=== PATIENT | female | born 1985 | race Caucasian/White ===

== ENCOUNTER 2017-04-12 23:14 | Emergency (ER) | payer BC, MEDICAID, OTHER ==
[~2017-04-12] VITALS: Ht 154.9 cm; Wt 48.0 kg
[~2017-04-12 23:14] MED LIST: IRON325T2 PO; PERC5TAB12 PO; PREN0.01 PO; PREN1TAB30
[2017-04-12 23:23] VITALS: BP 112/84; PULSE 76; RESP 14; TEMP 98.2; O2SAT 100
[2017-04-13 00:03] LABS: BILIRUBIN, URINE NEG (NEG); BLOOD, URINE NEG (NEG); GLUCOSE,URINE NEG (NEG); KETONE, URINE NEG (NEG); NITRITE,URINE NEG (NEG); PH, URINE 6.5 (5.0-8.5); SQUAMOUS EPITHELIAL CELL URINE 1 /hpf (0-5); URINE COLOR COLORLESS (YELLW/STRAW); URINE LEUKOCYTE ESTERASE SMALL (NEG)
--- NOTE | 2017-04-13 00:26 | PD ---
HPI Chief Complaint: Art Professor Problem/Complaint Time Seen by Provider: 23:50 Travel History International Travel<30 days: No Contact w/Intl Traveler<30days: No Traveled to known affect area: No History of Present Illness HPI Patient's 31-year-old female presenting to the emergency for evaluation of a prolonged menstrual cycle. Patient states this started on 04/02/17, she had 2 days of heavy bleeding followed by spotting since that time. She presents today with continued spotting. She denies any heavy bleeding or clots. She reports a history of anemia and stated that she felt lightheaded today at work. She also states that she has intermittent cramping, none at this time. The cramping is consistent with her menstrual cramps. She has no other complaints at this time. [facility] Past Medical History Asthma: Yes Cancer: Yes (CERVICAL) Diminished Hearing: No ?: Unknown LMP: CURRENT : 2 Para: 2 Past Surgical History Section: Yes (X2) Gynecologic Surgery: Yes ( X2) Social History Alcohol Use: Yes (OCC) Tobacco Use: Yes Substance Use: No Allergies-Medications (Allergen,Severity, Reaction): Coded Allergies: No Known Allergies (Verified , 04/12/17) Reported Meds & Prescriptions Reported Meds & Active Scripts Active No Active Prescriptions or Reported Medications Review of Systems Except as stated in HPI: all other systems reviewed are Neg HENT: Positive: Lightheadedness Genitourinary: Positive: Vaginal Bleeding Physical Exam Narrative GENERAL: Well-developed, well-nourished, alert female. Resting comfortably in no acute distress. SKIN: Warm and dry. HEAD: Atraumatic. Normocephalic. EYES: Pupils equal and round. No scleral icterus. No injection or drainage. ENT: No nasal bleeding or discharge. Mucous membranes pink and moist. NECK: Trachea midline. No JVD. CARDIOVASCULAR: Regular rate and rhythm. RESPIRATORY: No accessory muscle use. Clear to auscultation. Breath sounds equal bilaterally. GASTROINTESTINAL: Abdomen soft, non-tender, nondistended. Hepatic and splenic margins not palpable. MUSCULOSKELETAL: Extremities without clubbing, cyanosis, or edema. No obvious deformities. NEUROLOGICAL: Awake and alert. No obvious cranial nerve deficits. Motor grossly within normal limits. Five out of 5 muscle strength in the arms and legs. Normal speech. PSYCHIATRIC: Appropriate mood and affect; insight and judgment normal. Data Data Last Documented VS Vital Signs Date Time Temp Pulse Resp B/P (MAP) Pulse Ox O2 Delivery O2 Flow Rate FiO2 04/12/17 23:23 98.2 76 14 112/84 (93) 100 Room Air Orders Orders Ed Urine Pregnancytest Poc (04/12/17 23:31) Urinalysis - C+S If Indicated (04/12/17 23:31) Complete Blood Count With Diff (04/12/17 23:56) Ed Discharge Order (04/13/17 01:09) Labs Laboratory Tests Test 04/12/17 22:35 04/12/17 23:59 Urine Color COLORLESS Urine Turbidity CLEAR Urine pH 6.5 Urine Specific [place] 1.002 Urine Protein NEG mg/dL Urine Glucose (UA) NEG mg/dL Urine Ketones NEG mg/dL Urine Occult Blood NEG Urine Nitrite NEG Urine Bilirubin NEG Urine Urobilinogen LESS THAN 2.0 MG/DL Urine Leukocyte Esterase SMALL Urine RBC LESS THAN 1 /hpf Urine WBC 2 /hpf Urine Squamous Epithelial Cells 1 /hpf Microscopic Urinalysis Comment CULT NOT INDICATED White Blood Count 7.2 TH/MM3 Red Blood Count 4.12 MIL/MM3 Hemoglobin 7.1 GM/DL Hematocrit 23.6 % Mean Corpuscular Volume 57.3 FL Mean Corpuscular Hemoglobin 17.3 PG Mean Corpuscular Hemoglobin Concent 30.1 % Red Cell Distribution Width 18.8 % Platelet Count 339 TH/MM3 Mean Platelet Volume 8.5 FL Neutrophils (%) (Auto) 49.8 % Lymphocytes (%) (Auto) 34.9 % Monocytes (%) (Auto) 12.1 % Eosinophils (%) (Auto) 2.2 % Basophils (%) (Auto) 1.0 % Neutrophils # (Auto) 3.6 TH/MM3 Lymphocytes # (Auto) 2.5 TH/MM3 Monocytes # (Auto) 0.9 TH/MM3 Eosinophils # (Auto) 0.2 TH/MM3 Basophils # (Auto) 0.1 TH/MM3 CBC Comment DIFF FINAL Differential Comment MDM Medical Decision Making Medical Screen Exam Complete: Yes Emergency Medical Condition: Yes Medical Record Reviewed: Yes Interpretation(s) Laboratory Tests Test 04/12/17 22:35 04/12/17 23:59 Urine Color COLORLESS Urine Turbidity CLEAR Urine pH 6.5 Urine Specific [place] 1.002 Urine Protein NEG mg/dL Urine Glucose (UA) NEG mg/dL Urine Ketones NEG mg/dL Urine Occult Blood NEG Urine Nitrite NEG Urine Bilirubin NEG Urine Urobilinogen LESS THAN 2.0 MG/DL Urine Leukocyte Esterase SMALL Urine RBC LESS THAN 1 /hpf Urine WBC 2 /hpf Urine Squamous Epithelial Cells 1 /hpf Microscopic Urinalysis Comment CULT NOT INDICATED White Blood Count 7.2 TH/MM3 Red Blood Count 4.12 MIL/MM3 Hemoglobin 7.1 GM/DL Hematocrit 23.6 % Mean Corpuscular Volume 57.3 FL Mean Corpuscular Hemoglobin 17.3 PG Mean Corpuscular Hemoglobin Concent 30.1 % Red Cell Distribution Width 18.8 % Platelet Count 339 TH/MM3 Mean Platelet Volume 8.5 FL Neutrophils (%) (Auto) 49.8 % Lymphocytes (%) (Auto) 34.9 % Monocytes (%) (Auto) 12.1 % Eosinophils (%) (Auto) 2.2 % Basophils (%) (Auto) 1.0 % Neutrophils # (Auto) 3.6 TH/MM3 Lymphocytes # (Auto) 2.5 TH/MM3 Monocytes # (Auto) 0.9 TH/MM3 Eosinophils # (Auto) 0.2 TH/MM3 Basophils # (Auto) 0.1 TH/MM3 CBC Comment DIFF FINAL Differential Comment Vital Signs Date Time Temp Pulse Resp B/P (MAP) Pulse Ox O2 Delivery O2 Flow Rate FiO2 04/12/17 23:23 98.2 76 14 112/84 (93) 100 Room Air Differential Diagnosis Abnormal uterine bleeding versus anemia versus menorrhagia versus other Narrative Course Patient presented with 10 days of uterine bleeding, she's been spotting for the last 8 days. Her vital signs are stable, labs ordered and pending. Urine is negative. Hemoglobin is 7.1 and 23, discussed with my attending physician. Patient will be prescribed iron therapy. She is advised to follow-up with her primary doctor. She states she hadn't appointment on Friday but missed it. Patient was offered oral contraceptive pills to help regulate her menstrual cycle, she states that she will discuss it with her primary doctor. She is encouraged to return to emergency department immediately for any new or worsening symptoms. Patient verbalized understanding of these instructions. Patient stable for discharge. Diagnosis Primary Impression: Abnormal menses Additional Impression: Anemia Qualified Codes: D64.9 - Anemia, unspecified Referrals: [employer] Primary Care Physician Patient Instructions: Anemia (ED), General Instructions Additional Instructions: Take medications as directed Follow-up with your primary doctor Follow-up with your [id number]/[id number] tank driver Return to emergency department for any new or worsening symptoms Med/Other Pt SpecificInfo: Prescription(s) given Scripts Multi-Vit/Iron-Folic [id number] C (Ferralet) 90-1-0.012-120 mg Tab 1 TAB PO DAILY, #30 Prov: Yadira Arias 04/13/17 Disposition: 01 DISCHARGE HOME Condition: Stable Yadira Arias Apr 13, 2017 00:26
[2017-04-13 00:31] LABS: AUTOMATED NEUTROPHIL # 3.6 TH/MM3 (1.8-7.7); BASOPHIL # 0.1 TH/MM3 (0-0.2); EOSINOPHIL # 0.2 TH/MM3 (0-0.4); EOSINOPHIL % 2.2 % (0.0-4.0); HEMATOCRIT 23.6 % (35.0-46.0); HEMOGLOBIN 7.1 GM/DL (11.6-15.3); LYMPH % 34.9 % (9.0-44.0); LYMPHOCYTE # 2.5 TH/MM3 (1.0-4.8); MEAN CELL VOLUME 57.3 FL (80.0-100.0); MEAN CORPUSCULAR HEMOGLOBIN 17.3 PG (27.0-34.0); MEAN CORPUSCULAR HGB CONC 30.1 % (32.0-36.0); MEAN PLATELET VOLUME 8.5 FL (7.0-11.0); MONO % 12.1 % (0.0-8.0); MONOCYTE # 0.9 TH/MM3 (0-0.9); NEUT % 49.8 % (16.0-70.0); PLATELET COUNT 339 TH/MM3 (150-450); RED BLOOD COUNT 4.12 MIL/MM3 (4.00-5.30); RED CELL DISTRIBUTION WIDTH 18.8 % (11.6-17.2); WHITE BLOOD COUNT 7.2 TH/MM3 (4.0-11.0)
[2017-04-13] MEDS ORDERED: FERRTAB2 PO (01:12)
== END 2017-04-13 01:34 | disposition home or self-care (01) ==
LOC: NEPD 23:14
DX: N94.89 Other specified conditions associated with female genital organs and menstrual cycle (principal); D64.9 Anemia, unspecified; R42 Dizziness and giddiness; Z72.0 Tobacco use; Z87.09 Personal history of other diseases of the respiratory system; Z85.41 Personal history of malignant neoplasm of cervix uteri; Z86.2 Personal history of diseases of the blood and blood-forming organs and certain disorders involving the immune mechanism
CPT/HCPCS: 81001; 84703; 85025; 99283

== ENCOUNTER 2018-03-02 12:18 | Inpatient (IN) ==
[2018-03-02] MEDS ORDERED: ceFAZolin Inj 2,000 MG in Sodium Chlor 0.9% Inj 80 ML IV.SIG SCH (13:00)
[2018-03-02] MEDS ORDERED: Citric Acid/Sodium Citrate Liq 30 ML UDC PO SCH (13:00)
[2018-03-02 13:28] LABS: Bacteria,Urine Occasional /hpf; Bilirubin,Urine Negative (Negative); Clarity,Urine Hazy (Clear); Color,Urine Yellow (Yellw/Straw); Glucose,Urine (UA) Negative (Negative); Leukocyte Esterase,Urine Small (Negative); Mucus,Urine Few /lpf (Occasional); Nitrite,Urine Negative (Negative); Specific Gravity,Urine 1.015 (1.002-1.035); Squamous Epithelial Cell,Urine 6 /hpf (0-5)
[2018-03-02 13:30] LABS: Amphetamine Screen,Urine Neg (Neg); Barbiturate Screen,Urine Neg (Neg); Cannabinoid Screen,Urine Neg (Neg); Cocaine Screen,Urine Neg (Neg)
[2018-03-02 13:33] LABS: Baso % (Auto) 0.3 % (0.0-2.0); Eos % (Auto) 0.4 % (0.0-4.0); Hematocrit 37.2 % (35.0-46.0); Hemoglobin 11.6 gm/dL (11.6-15.3); Lymph # (Auto) 1.3 th/mm3 (1.0-4.8); Lymph % (Auto) 15.2 % (9.0-44.0); Mean Corpuscular HGB Conc 31.2 % (32.0-36.0); Mean Corpuscular Hemoglobin 23.6 pg (27.0-34.0); Mean Corpuscular Volume 75.5 fL (80.0-100.0); Mean Platelet Volume 8.4 fL (7.0-11.0); Mono # (Auto) 0.7 th/mm3 (0.0-0.9); Mono % (Auto) 7.9 % (0.0-8.0); Neut # (Auto) 6.5 th/mm3 (1.8-7.7); Neut % (Auto) 76.2 % (16.0-70.0); Platelet Count 206 th/mm3 (150-450); Red Blood Count 4.93 mil/mm3 (4.00-5.30); Red Cell Distribution Width 37.3 % (11.6-17.2); White Blood Count 8.5 th/mm3 (4.0-11.0)
[2018-03-02 13:35] LABS: Opiate Screen,Urine Neg (Neg)
[2018-03-02] MEDS ORDERED: Morphine Sulfate PF Inj 5 MG/10 ML Ampul ONE (13:35)
--- NOTE | 2018-03-02 13:52 | P.HPOB ---
History of Present Illness Primary Care Physician: Leonarda Bartholomew Chief Complaint: Repeat c/s History of Present Illness: Patient is a 32 year old at 39 weeks and 2 days who presents for repeat c/ s. Patient has been experiencing irregular contractions. She denies vaginal bleeding, gush of fluid/fluid leakage. She endorses positive movement. Patient has had 3 prior deliveries. She desires an elective repeat and tubal sterilization. [facility] tubal consent forms have been signed. Surgical history: 3. Medical history: She has a history of anemia including this . She has been on iron therapy now for 6 weeks. She is known to carry alpha thalassemia. Family history: Noncontributory. Social history: Non-smoker, no recreational drug or alcohol use during the . She is and has 3 living children. Weeks Gestation:: 39 Para: 3 : 4 - Inpatient Certification I certify that the inpatient services were ordered in accordance with Medicare regulations governing the order. This includes certification that hospital inpatient services are reasonable and necessary and in the case of services not specified as inpatient-only under 42 CFR 419.22(n), that they are appropriately provided as inpatient services in accordance to with the 2-midnight benchmark under 43 CFR 412.3(e) Estimated Total Length of Stay (Days): 3 Plans for Post Hospital Care: Home Review of Systems All other systems reviewed negative except as stated in HPI PMFSH - History History Provided By: Patient - Medical History Medical History: Medical History (Last Updated 03/02/18 @ 13:43 by Luisa Franklin MD, R2) Anemia - Social History I have reviewed the patient's Social History: Yes - Tobacco History Second Hand Smoke Exposure: No - Travel History Recent Travel in the [place] Within the Last 8 Weeks: No Recent Travel Out of the Country Within the Last 8 Weeks: No Medications and Allergies Active Medications: Active Medications Citric Acid/Sodium Citrate (Sodium Citrate/Citric Acid Liq) 30 ml PO [employer]ERS [employer] [facility] Stop: 03/06/18 12:59 Lactated Ringer's (Lr 1000 Ml Inj) 1,000 mls @ 2,000 mls/hr IV.SIG .Q30M ONE Stop: 03/02/18 13:21 Lactated Ringer's (Lr 1000 Ml Inj) 1,000 mls @ 150 mls/hr IV.CONT .Q6H40M [facility] Cefazolin Sodium 2,000 mg/ (Sodium Chloride) 100 mls @ 200 mls/hr IV.SIG T[employer]ERS [employer] [facility] Stop: 03/06/18 12:59 Allergies Allergy/AdvReac Type Severity Reaction Status Date / Time No Known Allergies Allergy Unknown none Uncoded 03/02/18 12:59 Home Medications Medication Instructions Recorded Confirmed Type Iron (ferrous sulfate) 325 mg PO DAILY 03/02/18 03/02/18 History Exam Vital signs: Vital Signs 03/02/18 12:30 03/02/18 12:40 Temperature 97.8 F Pulse Rate 65 Respiratory Rate 18 Blood Pressure 110/72 Intake & Output 03/01/18 03/02/18 03/02/18 18:59 06:59 18:59 Weight 70.76 kg Narrative: GENERAL: Well-nourished, well-developed patient. SKIN: Warm and dry. HEAD: Normocephalic and atraumatic. EYES: No scleral icterus. No injection or drainage. ENT: No nasal drainage noted. Mucous membranes pink. Airway patent. NECK: Supple, trachea midline. No JVD. CARDIOVASCULAR: Regular rate and rhythm without murmurs, gallops, or rubs. RESPIRATORY: Breath sounds equal bilaterally. No accessory muscle use. BREASTS: Bilateral exam showed no masses , no retractions, no nipple discharge. ABDOMEN/GI: Abdomen soft, non-tender, bowel sounds present, no rebound, no guarding Gravid to 39 weeks size GENITOURINARY: Membranes: intact Uterine Contractions: irregular FHT's: Category: 1 Baseline: 135 Reactive: + Variability: moderate Decels: none EXTREMITIES: No cyanosis or edema. BACK: Nontender without obvious deformity. No CVA tenderness. NEUROLOGICAL: Awake and alert. Motor and sensory grossly within normal limits. Five out of 5 muscle strength in all muscle groups. Normal speech. Results - Labs CBC & Chem 7: 03/02/18 12:45 Labs: Laboratory Results - last 24 hr 03/02/18 03/02/18 12:40 12:40 Urine Color Yellow Urine Clarity Hazy H Urine pH 6.0 Ur Specific [place] 1.015 Urine Protein Negative Urine Glucose (UA) Negative Urine Ketones Negative Urine Occult Blood Negative Urine Nitrate Negative Urine Bilirubin Negative Urine Urobilinogen Less than 2 Ur Leukocyte Esterase Small H Urine RBC Less than 1 Urine WBC 6 H Ur Squamous Epith Cells 6 Urine Bacteria Occasional H Urine Mucus Few H Micro UA Comment Culture not ind Ur Microscopic Review Not Reportable Urine Culture Comments Culture not ind Urine Opiates Screen Neg Ur Barbiturates Screen Neg Ur Amphetamines Screen Neg U Benzodiazepines Scrn Neg Urine Cocaine Screen Neg U Cannabinoids Screen Neg Caprini VTE Risk Assessment Caprini VTE Risk Assessment: No/Low Risk (score <= 1) Caprini Risk Assessment Model: Point Value = 1 Point Value = 2 Point Value = 3 Point Value = 5 Age 41-60 Minor surgery BMI > 25 kg/m2 Swollen legs Varicose veins or History of unexplained or recurrent spontaneous Oral contraceptives or hormone replacement Sepsis (< 1 month) Serious lung disease, including pneumonia (< 1 month) Abnormal pulmonary function Acute myocardial infarction Congestive heart failure (< 1 month) History of inflammatory bowel disease Medical patient at bed rest Age 61-74 Arthroscopic surgery Major open surgery (> 45 min) Laparoscopic surgery (> 45 min) Malignancy Confined to bed (> 72 hours) Immobilizing plaster cast Central venous access Age >= 75 History of VTE Family history of VTE Factor V Leiden Prothrombin [id number] Lupus anticoagulant Anticardiolipin antibodies Elevated serum homocysteine Heparin-induced thrombocytopenia Other congenital or acquired thrombophilia Stroke (< 1 month) Elective arthroplasty Hip, pelvis, or leg fracture Acute spinal cord injury (< 1 month) Prophylaxis Regimen: Total Risk Factor Score Risk Level Prophylaxis Regimen 0-1 Low Early ambulation 2 Moderate Order ONE of the following: *Sequential Compression Device (SCD) *Heparin 5000 units SQ BID 3-4 Higher Order ONE of the following medications: *Heparin 5000 units SQ TID *Enoxaparin/Lovenox 40 mg SQ daily (WT < 150 kg, CrCl > 30 mL/min) *Enoxaparin/Lovenox 30 mg SQ daily (WT < 150 kg, CrCl > 10-29 mL/min) *Enoxaparin/Lovenox 30 mg SQ BID (WT < 150 kg, CrCl > 30 mL/min) AND/OR *Sequential Compression Device (SCD) 5 or more Highest Order ONE of the following medications: *Heparin 5000 units SQ TID (Preferred with Epidurals) *Enoxaparin/Lovenox 40 mg SQ daily (WT < 150 kg, CrCl > 30 mL/min) *Enoxaparin/Lovenox 30 mg SQ daily (WT < 150 kg, CrCl > 10-29 mL/min) *Enoxaparin/Lovenox 30 mg SQ BID (WT < 150 kg, CrCl > 30 mL/min) AND *Sequential Compression Device (SCD) Assessment and Plan - Diagnosis (1) 39 weeks gestation of Code(s): Z3A.39 - 39 weeks gestation of Status: Acute - Plan Patient is a 32 year old at 39 weeks and 2 days who presents for repeat c/ s. 1. IUP, Category 1 tracing. 2. Repeat c/s. Prior c/s x3; last 2013, performed by Dr. Reynolds. * Routine pre-op orders placed. 3. Anemia on iron infusion for the past 5 weeks. * Pre-op H&H: 11.6/37.2. Discussed with OB hospitalist.
[2018-03-02 14:07] LABS: Ovalocytes 1+; Platelet Estimate Normal (Normal); Platelet Morphology Normal (Normal)
[2018-03-02] MEDS ORDERED: Oxytocin 30 Units/500ml Premix 30 UNITS/500 ML BAG IV.SIG ONE (15:22)
[2018-03-02] MEDS ORDERED: Acetaminophen 325 MG Tablet PO PRN (15:22)
--- NOTE | 2018-03-02 15:28 | P.OBDELI ---
Procedure Note - Pre Op Diagnosis (1) Previous section Performed by: Fran Lee MD Procedure: Repeat Low Transverse Section Indication for Delivery: Desired elective repeat Previous Condition: Other Informed Consent Obtained: For anesthesia, For procedure Confirmed Correct: Patient, Procedure, Site, Time-out taken Anesthesia: Spinal Medication Prior to Procedure: Antacids, Antibiotics, IV Monitoring During Procedure: Blood pressure monitoring, monitor, Pulse oximetry Sterile Preparation: With 2% chlorexidine (Hibiclens) Position: Supine with wedge to left side - Operative Features Skin Incision: Pfannenstiel Uterine Incision: Low transverse w/knife / blunt ext, Low transverse w/knife / scissors Presentation: Vertex Status of Infant: Viable, Nursery present Placenta Delivered: Intact Medications: Antibiotics, Oxytocin Procedure Tolerated: Well Maternal Condition: Stable Baby Condition: Stable - Infant Infant: Female
[2018-03-02] MEDS ORDERED: Oxytocin 30 Units/500ml Premix 30 UNITS/500 ML BAG ONE (15:34)
[2018-03-02] MEDS ORDERED: Naloxone Inj 0.4 MG/ML Vial IV.PUSH PRN (16:59)
--- NOTE | 2018-03-02 19:08 | MP ---
cc: Fran Lee MD DATE OF OPERATION: 03/02/2018 PREOPERATIVE DIAGNOSES: Previous section x3, desire for tubal ligation. POSTOPERATIVE DIAGNOSES: Previous section x3, desire for tubal ligation with delivery of a viable female with Apgars 8 and 9 and 3415 grams. SURGEON: Fran Lee MD PAIL TESTER: Dr. Roxanne MD, resident. ANESTHESIA: Spinal. ESTIMATED BLOOD LOSS: 700 mL. URINE OUTPUT: 200 mL. FLUIDS: 1000 mL. FINDINGS: Adhesions of the tubes, uterus to abdominal wall. Normal ovaries, normal tubes. PROCEDURE PERFORMED: Repeat low transverse section via Pfannenstiel incision. COMPLICATIONS: none DESCRIPTION OF PROCEDURE: The patient presented to labor and delivery for a scheduled repeat section and tubal ligation. The patient was properly consented. Documents had been signed and the patient was taken to the operating room where spinal anesthesia was conducted. The patient was put in supine position. Surgical pause was done. The patient was prepped and draped in usual sterile fashion. Anesthesia was tested and found to be adequate. In the place of the old incision, a Pfannenstiel incision was made with a scalpel and carried down to the fascia. The fascia was then densely adherent to the muscle. Meticulous dissection of the muscle was performed. Muscles had been freed and in the midline using a second scalpel. The peritoneum was entered sharply and opened. The lower uterine segment was exposed and was freed from adhesion and a low transverse section was done. This incision was opened manually craniocaudally and a fetus in vertex position was delivered without problem. One tight nuchal cord was released. Meconium was noted. resuscitation was done by the NICU personnel. Cord was clamped, cut and baby was handed to the document preparer microfilming for further evaluation. Cord blood was obtained. Placenta was removed manually. Uterus was exteriorized, cleaned from blood clots and debris and closed in 1 layer using 1-0 Monocryl continuous suture. Excellent hemostasis was obtained. As planned, a tubal ligation was performed using a salpingectomy on the right side. The tube was grasped with a Bettina, clamped with Rhoda clamp, using Bovie, 2-0 Vicryl on an SH suture was placed x2 on the ends and excellent hemostasis was obtained. On the other side, the tube was adhesed to the ovary, so a portion of the tube was grasped with a [place] and ligated on both ends. Approximately a 5 cm segment was developed and the segment was cut. Both ends were then sutured using 2-0 Vicryl on an SH. Again, excellent hemostasis was obtained. The abdomen was cleaned from blood clots. The uterus was placed into abdominal cavity. All surfaces had been inspected and found to be hemostatic, including the pedicles. Peritoneum and muscle were grasped with Kellys and closed using 1-0 chromic continuous suture. Fascia was closed using 1-0 Vicryl continuous suture. Subcutaneous tissue was copiously irrigated and reapproximated using 2-0 plain, and skin was closed using rashi. The patient was moved to the recovery room in stable condition after a count of needles, instruments and sponges was correct x3. MD SEAN Hlal/dafne , 03:44 PM , 04:11 PM MTDKendell
[2018-03-02] MEDS ORDERED: Oxytocin 30 Units/500ml Premix 30 UNITS/500 ML BAG IV.SIG PRN (20:23)
[2018-03-03 05:15] LABS: Baso % (Auto) 0.3 % (0.0-2.0); Eos % (Auto) 0.1 % (0.0-4.0); Hematocrit 32.6 % (35.0-46.0); Hemoglobin 10.2 gm/dL (11.6-15.3); Lymph # (Auto) 1.2 th/mm3 (1.0-4.8); Mean Corpuscular HGB Conc 31.2 % (32.0-36.0); Mean Corpuscular Hemoglobin 23.4 pg (27.0-34.0); Mean Platelet Volume 8.6 fL (7.0-11.0); Mono % (Auto) 7.2 % (0.0-8.0); Neut # (Auto) 11.4 th/mm3 (1.8-7.7); Neut % (Auto) 83.4 % (16.0-70.0); Platelet Count 196 th/mm3 (150-450); Red Blood Count 4.35 mil/mm3 (4.00-5.30); Red Cell Distribution Width 36.4 % (11.6-17.2); White Blood Count 13.6 th/mm3 (4.0-11.0)
[2018-03-03 07:00] LABS: Dimorphic RBC Present
--- NOTE | 2018-03-03 09:30 | P.PNOB ---
Subjective Post op day: 1 Interval history: Patient is a 32 year-old delivered at 39 weeks and 2 days. Patient is post op day 1 after c/section and tubal. AFVSS. Patient's pain is well- controlled. Patient reports eating and drinking without any nausea or vomiting. Patient reports minimal bleeding. Patient has not passed gas and had no bowel movements. Patient is walking without lower extremity pain or shortness of breath. Patient is breast-feeding appropriately. Objective Vital Signs/I&O: Vital Signs 03/02/18 12:30 03/02/18 12:40 03/02/18 12:55 Temperature 97.8 F Pulse Rate 65 90 Respiratory Rate 18 Blood Pressure 110/72 03/02/18 13:25 03/02/18 13:45 03/02/18 15:40 Temperature 96.0 F L Pulse Rate 81 75 70 Respiratory Rate 18 Blood Pressure 113/64 03/02/18 15:46 03/02/18 16:10 03/02/18 16:25 Temperature 97.4 F L Pulse Rate 75 59 L 62 Respiratory Rate 19 16 16 Blood Pressure 111/68 106/65 117/70 03/02/18 17:36 03/02/18 20:00 03/02/18 21:35 Temperature 97.6 F 98.1 F Pulse Rate 69 70 Respiratory Rate 16 18 16 Blood Pressure 102/62 104/63 03/02/18 23:22 03/03/18 02:20 03/03/18 04:42 Temperature 98.3 F 98.5 F Pulse Rate 78 65 Respiratory Rate 18 18 18 Blood Pressure 103/61 99/59 L Intake & Output 03/02/18 03/03/18 03/03/18 18:59 06:59 18:59 Weight 70.76 kg Result Diagrams: 03/03/18 04:51 Objective Remarks: GENERAL: Well-nourished, well-developed patient. CARDIOVASCULAR: Regular rate and rhythm without murmurs, gallops, or rubs. RESPIRATORY: Breath sounds equal bilaterally. No accessory muscle use. ABDOMEN/GI: Abdomen soft, non-tender, bowel sounds present. Incision: Clean, dry and intact. Fundus: Firm, non-tender at umbilicus. GENITOURINARY: Light to moderate bleeding. EXTREMITIES: No cyanosis or edema, non-tender, without signs of DVT. Medications and IVs: Active Medications Acetaminophen (Tylenol) 650 mg PO Q6H PRN PRN Reason: PAIN SCALE 1 TO 2 Citric Acid/Sodium Citrate (Sodium Citrate/Citric Acid Liq) 30 ml PO [facility] Stop: 03/06/18 12:59 Last Admin: 03/02/18 13:45 Dose: 30 ml Diphenhydramine HCl (Benadryl) 50 mg PO Q6H PRN PRN Reason: MILD TO MODERATE ITCHING Stop: 03/03/18 16:58 Diphenhydramine HCl (Benadryl Inj) 25 mg IV.PUSH Q6H PRN PRN Reason: MILD TO MODERATE ITCHING Stop: 03/03/18 16:58 Diphtheria/Pertussis/Tetanus Vacc (Boostrix Vaccine Inj) 0.5 ml IM .ONCE ONE Stop: 03/03/18 16:01 Lactated Ringer's (Lr 1000 Ml Inj) 1,000 mls @ 150 mls/hr IV.CONT .Q6H40M [facility] Last Admin: 03/03/18 07:47 Dose: Not Given Cefazolin Sodium 2,000 mg/ (Sodium Chloride) 100 mls @ 200 mls/hr IV.SIG [facility] Stop: 03/06/18 12:59 Lactated Ringer's (Lr 1000 Ml Inj) 1,000 mls @ 100 mls/hr IV.CONT .Q10H [facility] Stop: 03/03/18 16:22 Last Admin: 03/03/18 07:47 Dose: Not Given Oxytocin (Pitocin 30 Units/Ns 500 Ml Premix) 30 units in 500 mls @ 100 mls/hr IV.SIG UNSCH PRN PRN Reason: Heavy bleeding Ketorolac Tromethamine (Toradol Inj) 30 mg IM Q6H PRN PRN Reason: SEE LABEL COMMENTS Stop: 03/07/18 15:21 Measles/Mumps/Rubella Vaccine Live (M-M-R Ii Vaccine Inj) 0.5 ml SQ .ONCE ONE Stop: 03/03/18 16:01 Miscellaneous Information (Misc Nursing Information) 1 each OTHER UNSCH PRN PRN Reason: SEE LABEL COMMENTS Stop: 03/03/18 16:58 Miscellaneous Information (Misc Nursing Information) 1 each OTHER UNSCH PRN PRN Reason: SEE LABEL COMMENTS Stop: 03/03/18 16:58 Naloxone HCl (Narcan Inj) 0.4 mg IV.PUSH UNSCH PRN PRN Reason: SEE LABEL COMMENTS Stop: 03/03/18 16:58 Oxycodone/Acetaminophen (Percocet 5/325 Mg) 1 tab PO Q4H PRN PRN Reason: PAIN SCALE 3 TO 5 Oxycodone/Acetaminophen (Percocet 5/325 Mg) 2 tab PO Q4H PRN PRN Reason: PAIN SCALE 6 TO 10 Sodium Chloride (Ns Flush) 2 ml IV.FLUSH BID JANICE Last Admin: 03/02/18 23:38 Dose: Not Given Sodium Chloride (Ns Flush) 2 ml IV.FLUSH PRN PRN PRN Reason: FLUSH AFTER USING IV ACCESS Assessment and Plan - Diagnosis (1) 39 weeks gestation of Code(s): Z3A.39 - 39 weeks gestation of Status: Acute - Plan Patient is a 32 year old at 39 weeks and 2 days. She is POD#1 from c/ section and tubal ligation. Hb Stable: 10.2 Continue routine care. Motrin and Percocet when necessary for pain. Encourage OOB Pelvic rest for 6 weeks will need follow-up appointment at that time. OB Follow up in one week for rashi removal. appropriately. Anticipate discharge tomorrow Discussed with OB hospitalist.
[2018-03-03] MEDS ORDERED: Measles/Mumps/Rubella Vaccine Inj 0.5 ML Vial SQ ONE (16:00)
[2018-03-03] MEDS ORDERED: Diphtheria/Tetanus/Pertussis Vaccine Inj 0.5 ML Syringe IM ONE (16:00)
[2018-03-04] MEDS ORDERED: Bisacodyl 10 MG Supp RECTAL PRN (08:00)
[2018-03-04] MEDS: Senna/Docusate Sodium 8.6/50 MG Tablet PO SCH ×2 (08:11→20:33)
--- NOTE | 2018-03-04 08:23 | P.PNOB ---
Subjective Interval history: Patient is a 32 year-old G4 now P4 delivered at 39 weeks and 2 days. Patient is post op day 2 after c/section and tubal. AFVSS. Patient's pain is well- controlled. Patient reports eating and drinking without any nausea or vomiting. Patient reports minimal bleeding. Patient has passed gas and had no bowel movements. Patient is walking without lower extremity pain or shortness of breath. Patient is breast-feeding appropriately. Objective Vital Signs/I&O: Vital Signs 03/03/18 14:20 03/03/18 19:58 Temperature 98.3 F 98.1 F Pulse Rate 69 93 H Respiratory Rate 20 18 Blood Pressure 89/58 L 118/71 Result Diagrams: 03/03/18 04:51 Objective Remarks: GENERAL: Well-nourished, well-developed patient. CARDIOVASCULAR: Regular rate and rhythm without murmurs, gallops, or rubs. RESPIRATORY: Breath sounds equal bilaterally. No accessory muscle use. ABDOMEN/GI: Abdomen soft, non-tender, bowel sounds present. Incision: Clean, dry and intact. Fundus: Firm, non-tender below umbilicus. GENITOURINARY: Light to moderate bleeding. EXTREMITIES: No cyanosis or edema, non-tender, without signs of DVT. Medications and IVs: Active Medications Acetaminophen (Tylenol) 650 mg PO Q6H PRN PRN Reason: PAIN SCALE 1 TO 2 Al Hydroxide/Mg Hydroxide (Milk Of Magnesia Liq) 30 ml PO Q12H PRN PRN Reason: Mild Constipation Bisacodyl (Dulcolax Supp) 10 mg RECTAL DAILY PRN PRN Reason: SEVERE CONSITIPATION Citric Acid/Sodium Citrate (Sodium Citrate/Citric Acid Liq) 30 ml PO REGIONAL ECONOMIST [facility] Stop: 03/06/18 12:59 Last Admin: 03/02/18 13:45 Dose: 30 ml Lactated Ringer's (Lr 1000 Ml Inj) 1,000 mls @ 150 mls/hr IV.CONT .Q6H40M [facility] Last Admin: 03/04/18 02:23 Dose: Not Given Cefazolin Sodium 2,000 mg/ (Sodium Chloride) 100 mls @ 200 mls/hr IV.SIG REGIONAL ECONOMIST [facility] Stop: 03/06/18 12:59 Oxytocin (Pitocin 30 Units/Ns 500 Ml Premix) 30 units in 500 mls @ 100 mls/hr IV.SIG UNSCH PRN PRN Reason: Heavy bleeding Ibuprofen (Motrin) 800 mg PO Q8H PRN PRN Reason: cramping Last Admin: 03/04/18 02:21 Dose: 800 mg Ketorolac Tromethamine (Toradol Inj) 30 mg IM Q6H PRN PRN Reason: SEE LABEL COMMENTS Stop: 03/07/18 15:21 Oxycodone/Acetaminophen (Percocet 5/325 Mg) 1 tab PO Q4H PRN PRN Reason: PAIN SCALE 3 TO 5 Last Admin: 03/04/18 08:10 Dose: 1 tab Oxycodone/Acetaminophen (Percocet 5/325 Mg) 2 tab PO Q4H PRN PRN Reason: PAIN SCALE 6 TO 10 Last Admin: 03/04/18 02:21 Dose: 2 tab Senna/Docusate Sodium (Mary-Colace) 1 tab PO BID JANICE Last Admin: 03/04/18 08:11 Dose: 1 tab Sennosides (Senokot) 17.2 mg PO Q12H PRN PRN Reason: Moderate Constipation Sodium Chloride (Ns Flush) 2 ml IV.FLUSH BID JANICE Last Admin: 03/04/18 08:11 Dose: Not Given Sodium Chloride (Ns Flush) 2 ml IV.FLUSH PRN PRN PRN Reason: FLUSH AFTER USING IV ACCESS Assessment and Plan - Diagnosis (1) 39 weeks gestation of Code(s): Z3A.39 - 39 weeks gestation of Status: Acute - Plan Patient is a 32 year old at 39 weeks and 2 days. She is POD#2 from c/ section and tubal ligation. Hb Stable: 10.2 Continue routine care. Motrin and Percocet when necessary for pain. Encourage OOB Pelvic rest for 6 weeks will need follow-up appointment at that time. OB Follow up in one week for rashi removal. appropriately. Anticipate discharge tomorrow Discussed with OB hospitalist.
[2018-03-05 07:56] VITALS: BP 105/58; PULSE 84; TEMP 97.6
--- NOTE | 2018-03-05 09:21 | P.PNOB ---
Subjective Interval history: Patient is a 32 year-old G4 now P4 delivered at 39 weeks and 2 days. Patient is post op day 3 after c/section and tubal. AFVSS. Patient's pain is well- controlled. Patient reports eating and drinking without any nausea or vomiting. Patient reports minimal bleeding. Patient has passed gas and had no bowel movements. Patient is walking without lower extremity pain or shortness of breath. Patient is breast-feeding appropriately. She is ready to be discharged today. Objective Vital Signs/I&O: Vital Signs 03/04/18 20:00 03/05/18 07:55 Temperature 97.9 F 97.6 F Pulse Rate 69 84 Respiratory Rate 17 18 Blood Pressure 100/64 105/58 L Result Diagrams: 03/03/18 04:51 Objective Remarks: GENERAL: Well-nourished, well-developed patient. CARDIOVASCULAR: Regular rate and rhythm without murmurs, gallops, or rubs. RESPIRATORY: Breath sounds equal bilaterally. No accessory muscle use. ABDOMEN/GI: Abdomen soft, non-tender, bowel sounds present. Incision: Clean, dry and intact. Fundus: Firm, non-tender at umbilicus. GENITOURINARY: Light to moderate bleeding. EXTREMITIES: No cyanosis or edema, non-tender, without signs of DVT. Medications and IVs: Active Medications Acetaminophen (Tylenol) 650 mg PO Q6H PRN PRN Reason: PAIN SCALE 1 TO 2 Al Hydroxide/Mg Hydroxide (Milk Of Magnesia Liq) 30 ml PO Q12H PRN PRN Reason: Mild Constipation Bisacodyl (Dulcolax Supp) 10 mg RECTAL DAILY PRN PRN Reason: SEVERE CONSITIPATION Citric Acid/Sodium Citrate (Sodium Citrate/Citric Acid Liq) 30 ml PO REEL REPAIRER [facility] Stop: 03/06/18 12:59 Last Admin: 03/02/18 13:45 Dose: 30 ml Lactated Ringer's (Lr 1000 Ml Inj) 1,000 mls @ 150 mls/hr IV.CONT .Q6H40M [facility] Last Admin: 03/04/18 02:23 Dose: Not Given Cefazolin Sodium 2,000 mg/ (Sodium Chloride) 100 mls @ 200 mls/hr IV.SIG REEL REPAIRER [facility] Stop: 03/06/18 12:59 Oxytocin (Pitocin 30 Units/Ns 500 Ml Premix) 30 units in 500 mls @ 100 mls/hr IV.SIG UNSCH PRN PRN Reason: Heavy bleeding Ibuprofen (Motrin) 800 mg PO Q8H PRN PRN Reason: cramping Last Admin: 03/05/18 04:37 Dose: 800 mg Ketorolac Tromethamine (Toradol Inj) 30 mg IM Q6H PRN PRN Reason: SEE LABEL COMMENTS Stop: 03/07/18 15:21 Oxycodone/Acetaminophen (Percocet 5/325 Mg) 1 tab PO Q4H PRN PRN Reason: PAIN SCALE 3 TO 5 Last Admin: 03/04/18 12:15 Dose: 1 tab Oxycodone/Acetaminophen (Percocet 5/325 Mg) 2 tab PO Q4H PRN PRN Reason: PAIN SCALE 6 TO 10 Last Admin: 03/05/18 04:37 Dose: 2 tab Senna/Docusate Sodium (Mary-Colace) 1 tab PO BID [facility] Last Admin: 03/04/18 20:33 Dose: 1 tab Sennosides (Senokot) 17.2 mg PO Q12H PRN PRN Reason: Moderate Constipation Sodium Chloride (Ns Flush) 2 ml IV.FLUSH BID JANICE Last Admin: 03/04/18 08:11 Dose: Not Given Sodium Chloride (Ns Flush) 2 ml IV.FLUSH PRN PRN PRN Reason: FLUSH AFTER USING IV ACCESS Assessment and Plan - Diagnosis (1) 39 weeks gestation of Code(s): Z3A.39 - 39 weeks gestation of Status: Acute - Plan Patient is a 32 year old at 39 weeks and 2 days. She is POD#3 from c/ section and tubal ligation. AFVSS Continue routine care. Motrin and Percocet when necessary for pain. Encourage OOB Pelvic rest for 6 weeks will need follow-up appointment at that time. OB Follow up in one week for rashi removal. appropriately. Anticipate discharge today Discussed with OB hospitalist.
[2018-03-05 13:53] VITALS: RESP 20
== END 2018-03-05 14:10 | disposition home or self-care (01) ==
LOC: H2E 12:18 → H1EA 16:59
PROVIDERS: ADMIT Obstetrics & Gynecology; ATTEND Obstetrics & Gynecology